=== PATIENT | female | born 1995 | race Caucasian/White ===

== ENCOUNTER 2017-06-13 06:27 | Emergency (ER) | payer BC ==
[~2017-06-13] VITALS: Ht 154.9 cm; Wt 67.0 kg
[2017-06-13 06:29] VITALS: Ht 154.9 cm; Wt 67.0 kg
--- NOTE | 2017-06-13 07:13 | ERD ---
ER Documentation Chief Complaint Date/Time DATE: 06/13/17 TIME: 06:56 Chief Complaint 3rd time seizure, no meds, no incontinence, no witness HPI 21-year-old female ambulatory to the ED for evaluation after a witnessed seizure. Father heard her cry out and found her in bed witnessed a tonic- clonic seizure lasting several minutes. No urinary or fecal incontinence. She is currently asymptomatic. Denies headache neck or back pain. No visual changes. No recent URIs or febrile illnesses. Denies abdominal pain or back pain. No skin rash. Admits to recent insomnia. Not back to baseline and asymptomatic. She had her first seizure at the age of 12 and then again at the age of 18 but recently the frequency has been increasing and has several seizures per month. They only occur when she is sleeping and seemed to be brought on by insomnia. She is being worked up by her primary care physician, Dr. Hwang, and is pending referral to neurology next month. Previous workup included CT scan and MRI which have been unremarkable. She admits to smoking marijuana once every 2 weeks but denies any other illicit drug use or alcohol use. ROS All systems reviewed and are negative except as per history of present illness. Medications Home Meds Active Scripts Levetiracetam* (Keppra*) 500 Mg/5 Ml Solution, 500 MG PO BID, #30 BOTTLE Prov:ALAN HERMAN MD 06/13/17 Allergies Allergies: Coded Allergies: No Known Allergy (Unverified , 03/28/16) PMhx/Soc As per HPI. History of Surgery: No Anesthesia Reaction: No Hx Neurological Disorder: Yes (SEIZURE D/O NO MEDS ) Hx Respiratory Disorders: No Hx Cardiac Disorders: No Hx Psychiatric Problems: No Hx Miscellaneous Medical Probl: No Hx Alcohol Use: No Hx Substance Use: Yes (Marijuana) Hx Tobacco Use: No FmHx No seizures, asthma or diabetes Physical Exam Vitals Vital Signs Date Time Temp Pulse Resp B/P Pulse Ox O2 Delivery O2 Flow Rate FiO2 06/13/17 06:29 98.1 99 18 114/67 99 Physical Exam Const: Alert and oriented, well-appearing in no acute distress. Head: Atraumatic Eyes: Pupils equal reactive to light, extraocular movements intact. No nystagmus.Normal Conjunctiva ENT: Normal External Ears, Nose and Mouth.Pharynx is clear without erythema or exudate. Mucous membranes are moist. Neck: Full range of motion.Nontender. No meningismus. Resp: Breath sounds are equal and clear to auscultation bilaterally Cardio: Regular rate and rhythm, no murmurs Abd: Soft, non tender, non distended. Normal bowel sounds Skin: No petechiae or rashes Back: No midline or flank tenderness Ext: No cyanosis, or edema Neur: Awake and alert. Oriented 4. Cranial nerves II through XII are intact. Motor and sensory equal bilaterally. Gait is normal. Psych: Normal Mood and Affect. The patient does not appear anxious or depressed. Result Diagram: 06/13/17 0700 06/13/17 0700 Results 24 hrs Laboratory Tests Test 06/13/17 07:00 White Blood Count 7.510^3/ul Red Blood Count 4.3110^6/ul Hemoglobin 12.6g/dl Hematocrit 39.0% Mean Corpuscular Volume 90.5fl Mean Corpuscular Hemoglobin 29.2pg Mean Corpuscular Hemoglobin Concent 32.3g/dl Red Cell Distribution Width 12.8% Platelet Count 13384^3/UL Mean Platelet Volume 9.2fl Neutrophils % 48.1% Lymphocytes % 44.7% Monocytes % 6.1% Eosinophils % 0.5% Basophils % 0.5% Nucleated Red Blood Cells % 0.0/100WBC Neutrophils # (Manual) 3.610^3/ul Lymphocytes # 3.410^3/ul Monocytes # 0.510^3/ul Eosinophils # 0.010^3/ul Basophils # 0.010^3/ul Nucleated Red Blood Cells # 0.010^3/ul Urine Color YELLOW Urine Clarity SLIGHTLY CLOUDY Urine pH 6.0 Urine Specific [place] 1.013 Urine Ketones NEGATIVEmg/dL Urine Nitrite NEGATIVEmg/dL Urine Bilirubin NEGATIVEmg/dL Urine Urobilinogen NEGATIVEmg/dL Urine Leukocyte Esterase 3+Concha/ul Urine Microscopic RBC 1/HPF Urine Microscopic WBC 8/HPF Urine Squamous Epithelial Cells FEW/HPF Urine Bacteria FEW/HPF Urine Hemoglobin NEGATIVEmg/dL Urine Glucose NEGATIVEmg/dL Urine Total Protein NEGATIVEmg/dl Sodium Level 142mmol/L Potassium Level 3.8mmol/L Chloride Level 107mmol/L Carbon Dioxide Level 26mmol/L Anion Gap 13 Blood Urea Nitrogen 7mg/dl Creatinine 0.67mg/dl Glucose Level 90mg/dl Calcium Level 9.7mg/dl Urine Opiates Screen Negative Urine Barbiturates Negative Urine Amphetamines Screen Negative Urine Benzodiazepines Screen Negative Urine Cocaine Screen Negative Urine Cannabinoids Positive Current Medications Medications (Trade) Dose Ordered Sig/Stephan Route PRN Reason Start Time Stop Time Status Last Admin Dose Admin Levetiracetam (Keppra 1,000mg/ 100ml (Pmx)) 100 ml @ 400 mls/hr ONCE ONCE IVPB 06/13/17 07:30 06/13/17 07:44 DC 06/13/17 07:49 Procedures/MDM DOCUMENTS REVIEWED: ED nurseED visit March 2016 for seizure. Patient was given a loading dose of Keppra at that time given 500 mg of Keppra. ED COURSE: Keppra 1grm REEXAMINATION/REEVALUATION: Time: 08:15. Doing well. Alert and oriented. No seizures. MEDICAL DECISION MAKIN-year-old female ambulatory to the ED for evaluation after a witnessed seizure. As per PMD patient has already had a workup and neurology referral but is noncompliant and has not followed up. At this point due to the increasing frequency of seizures anticonvulsants are indicated. Will initiate Keppra pending neurology follow-up. Drug cessation counseling recommended. No electrolyte abnormalities, hypoglycemia or cardiac dysrhythmia. Neuroimaging is deferred as she is already had neuroimaging is deferred as she is already had extensive neuroimaging repeat is deferred and there is no head injury or indication for repeat imaging now. No meningismus or signs of meningitis or encephalitis. Asymptomatic bacteriuria. Patient will be started on Keppra pending follow-up. Stable for discharge with precautionary instructions and outpatient follow-up as counseled. No driving, operating machinery or swimming until cleared by neurology or PMD. Form to be filed with [employer]. Counseled patient and family regarding diagnostic workup, diagnosis and need for followup. Understands to return to ED if symptoms recur, worsen or any other concerns. No driving, swimming or operating machinery until cleared by neurology. CALLS/CONSULTS: Time: 07:05. Dr Ron Hwang. [phone]. Patient has apparently already seen a neurologist and an extensive workup including MRI and EEG but has not follow-up and is notoriously noncompliant. Agrees with plan to initiate anticonvulsants, recommends Keppra pending urgent neurology follow-up. Departure Diagnosis: Primary Impression: Seizure Additional Impression: Seizure disorder Condition: Stable ALAN HERMAN MD Jun 13, 2017 07:08
[2017-06-13 07:24] LABS: BASOPHILS % 0.5 % (0.0-2.0); EOSINOPHILS % 0.5 % (0.0-7.0); HEMOGLOBIN 12.6 g/dl (12.0-16.0); LYMPHOCYTES # 3.4 10^3/ul (0.8-2.9); LYMPHOCYTES % 44.7 % (18.0-55.0); MEAN CORPUSCULAR HEMOGLOBIN 29.2 pg (29.0-33.0); MEAN CORPUSCULAR HGB CONC 32.3 g/dl (32.0-37.0); MEAN CORPUSCULAR VOLUME 90.5 fl (72.0-104.0); MEAN PLATELET VOLUME 9.2 fl (7.4-10.4); MONOCYTE # 0.5 10^3/ul (0.3-0.9); MONOCYTES % 6.1 % (0.0-13.0); NEUTROPHILS % 48.1 % (30.0-74.0); PLATELET COUNT 306 10^3/UL (140-415); RED BLOOD COUNT 4.31 10^6/ul (4.20-5.40); RED CELL DISTRIBUTION WIDTH 12.8 % (11.5-14.5); WHITE BLOOD COUNT 7.5 10^3/ul (4.8-10.8)
[2017-06-13] MEDS ORDERED: LEVETIRACETAM 1000 MG (PMX) 100 ML IVPB ONE (07:30)
[2017-06-13 07:47] LABS: ADD UMIC YES; CALCIUM 9.7 mg/dl (8.4-10.2); CREATININE 0.67 mg/dl (0.44-1.00); POTASSIUM 3.8 mmol/L (3.5-5.1); UR ASCORBIC ACID NEGATIVE (NEGATIVE); UR BACTERIA FEW /HPF (NONE SEEN); UR BILIRUBIN (Dip) NEGATIVE (NEGATIVE); UR BLOOD (Dip) NEGATIVE (NEGATIVE); UR CLARITY SLIGHTLY CLOUDY (CLEAR); UR COLOR YELLOW (YELLOW); UR GLUCOSE (Dip) NEGATIVE (NEGATIVE); UR KETONES (Dip) NEGATIVE (NEGATIVE); UR LEUKOCYTE ESTERASE (Dip) 3+ Leu/ul (NEGATIVE); UR NITRITE (Dip) NEGATIVE (NEGATIVE); UR RBC 1 /HPF (0-5); UR SPECIFIC GRAVITY (Dip) 1.013 (1.003-1.030); UR SQUAMOUS EPITHELIAL CELL FEW /HPF (FEW); UR TOTAL PROTEIN (Dip) NEGATIVE (NEGATIVE); UR UROBILINOGEN (Dip) NEGATIVE (NEGATIVE)
[2017-06-13 08:09] LABS: BARBITURATES Negative (NEGATIVE); BENZODIAZEPINES Negative (NEGATIVE); CANNABINOIDS Positive (NEGATIVE); COCAINE Negative (NEGATIVE); OPIATES Negative (NEGATIVE)
[2017-06-13] MEDS ORDERED: LEVE500S8 PO (08:26)
[2017-06-13 08:57] VITALS: BP 110/66; PULSE 70; RESP 18
== END 2017-06-13 09:02 | disposition home or self-care (01) ==
LOC: E/R 06:27
DX: G40.909 Epilepsy, unspecified, not intractable, without status epilepticus (principal); R40.2142 Coma scale, eyes open, spontaneous, at arrival to emergency department; R40.2252 Coma scale, best verbal response, oriented, at arrival to emergency department; R40.2362 Coma scale, best motor response, obeys commands, at arrival to emergency department; R00.2 Palpitations
CPT/HCPCS: 80048; 80307; 81001; 85025; 93005; J1953; Z7502

== ENCOUNTER → 2018-03-31 | Outpatient (CLI) | END | disposition home or self-care (01) ==